=== PATIENT | male | born 1965 | race Caucasian/White ===

== ENCOUNTER 2016-11-11 20:08 | Inpatient (IN) | payer BC ==
[~2016-11-11] VITALS: Ht 185.4 cm; Wt 126.6 kg
[2016-11-11] MEDS ORDERED: CATAPRES0.1 MG ORAL (20:21)
[2016-11-11] MEDS ORDERED: PREDNISONE10 MG ORAL (20:21)
[2016-11-11] MEDS ORDERED: FUROSEMIDE20 M1 ORAL (20:21)
[2016-11-11 20:25] VITALS: BP 120/48
[2016-11-11 20:44] LABS: BASOPHILS % (AUTO) 2.1 % (0.0-2.0); EOSINOPHILS % (AUTO) 1.4 % (0.0-3.0); LYMPHOCYTES % (AUTO) 32.4 % (20.0-45.0); MEAN CORPUSCULAR HEMOGLOBIN 33.7 PG (27.0-31.0); MEAN CORPUSCULAR HGB CONC 35.3 G/DL (32.0-36.0); MEAN CORPUSCULAR VOLUME 96 FL (80-99); MEAN PLATELET VOLUME 7.4 FL (6.5-10.1); MONOCYTES % (AUTO) 11.9 % (1.0-10.0); NEUTROPHILS % (AUTO) 52.2 % (45.0-75.0); PLATELET COUNT 245 K/UL (150-450); RED BLOOD COUNT 4.51 M/UL (4.70-6.10); RED CELL DISTRIBUTION WIDTH 13.6 % (11.6-14.8); WHITE BLOOD COUNT 8.3 K/UL (4.8-10.8)
[2016-11-11 21:11] LABS: ALANINE AMINOTRANSFERASE 25 U/L (3-41); ALBUMIN/GLOBULIN RATIO 1.1 (1.0-2.7); ANION GAP 16 (5-15); ASPARTATE AMINO TRANSFERASE 17 U/L (5-40); CALCIUM 9.5 mg/dL (8.6-10.2); CARBON DIOXIDE 24 mEQ/L (20-30); CHLORIDE 97 mEQ/L (98-107); GLOMERULAR FILTRATION RATE > 60 mL/min (>60); HEMOLYSIS 18; POTASSIUM 4.3 mEQ/L (3.4-4.9); SODIUM 137 mEQ/L (135-145); TOTAL PROTEIN 7.6 g/dL (6.6-8.7); TROPONIN I < 0.30 ng/mL (<=0.30)
[2016-11-11 21:22] LABS: CKMB < 1.5 ng/mL (< 6.7)
--- NOTE | 2016-11-11 21:41 | Emergency Room Report ---
History of Present Illness General Chief Complaint: Chest Pain Source: Patient (JOAN NOVA M.D.) Present Illness HPI 51-year-old male presents ED complaining of chest pain. States chest pain started just prior to arrival. Patient was at a tattoo parlour getting a tattoo when the chest pain started while at rest. Pain was midsternal, sharp, 7 -10. Nonradiating. Denies shortness of breath. Denies any dizziness. Patient was given nitroglycerin by EMS and states the chest pain improved. Given aspirin. Patient has history of high blood pressure and angina. Patient has taken nitroglycerin in the past. Denies drug use. No other aggravating relieving factors. Denies any other associated symptoms (JOAN NOVA M.D.) HPI The patient is a 51-year-old male who presented after increased chest pain which began just prior to arrival. Patient had been having sharp central chest pain which was improved with nitroglycerin. The patient had prior history of similar type symptoms and had previous diagnosis of arterial vasospasm. The patient had the been taking bystolic for blood pressure. The patient not been any vomiting. He had prior history of sleep apnea. He had negative cardiac catheterization approximately 10-12 years ago. He denies leg pain or swelling. (Dwight Amaya) Allergies: Coded Allergies: No Known Allergies (Unverified , 11/11/16) Patient History Past Medical History: HTN, other - angina Past Surgical History: none Pertinent Family History: none Social History: Denies: alcohol use, drug use, smoking Immunizations: UTD Reviewed Nursing Documentation: PMH: Agreed, PSxH: Agreed (JOAN NOVA M.D.) Past Medical History: see triage record Reviewed Nursing Documentation: PMH: Agreed, PSxH: Agreed (Dwight Amaya) Nursing Documentation-PMH Past Medical History: No History, Except For Hx Cardiac Problems: Yes - arrythmias, autoimmune disease Hx Hypertension: Yes (JOAN NOVA M.D.) Review of Systems All Other Systems: negative except mentioned in HPI (JOAN NOVA M.D.) All Other Systems: negative except mentioned in HPI (Dwight Amaya) Physical Exam Vital Signs Date Time Temp Pulse Resp B/P Pulse Ox O2 Delivery O2 Flow Rate FiO2 11/11/16 20:01 80 18 120/48 98 Room Air 11/11/16 20:25 98.2 Sp02 EP Interpretation: reviewed, normal General Appearance: no apparent distress, alert, GCS 15, non-toxic, obese Head: normocephalic, atraumatic Eyes: bilateral eye PERRL, bilateral eye normal inspection ENT: hearing grossly normal, normal pharynx, no angioedema, normal voice Neck: full range of motion, supple/symm/no masses Respiratory: chest non-tender, lungs clear, normal breath sounds, speaking full sentences Cardiovascular #1: regular rate, rhythm, no edema Cardiovascular #2: 2+ carotid (R), 2+ carotid (L), 2+ radial (R), 2+ radial (L) , 2+ dorsalis pedis (R), 2+ dorsalis pedis (L) Gastrointestinal: normal bowel sounds, non tender, soft, non-distended, no guarding, no rebound Rectal: deferred Genitourinary: normal inspection, no CVA tenderness Musculoskeletal: back normal, gait/station normal, normal range of motion, non- tender Neurologic: alert, oriented x3, responsive, motor strength/tone normal, sensory intact, speech normal Psychiatric: judgement/insight normal, memory normal, mood/affect normal, no suicidal/homicidal ideation Reflexes: 3+ bicep (R), 3+ bicep (L), 3+ tricep (R), 3+ tricep (L), 3+ knee (R) , 3+ knee (L) Skin: normal color, no rash, warm/dry, well hydrated Lymphatic: no adenopathy (JOAN NOVA M.D.) Sp02 EP Interpretation: reviewed, normal General Appearance: normal inspection, well appearing, no apparent distress, alert, obese Head: atraumatic ENT: normal ENT inspection, hearing grossly normal, normal voice Neck: normal inspection, full range of motion, supple, no bony tend Respiratory: normal inspection, lungs clear, normal breath sounds, no respiratory distress, no retraction, no wheezing Cardiovascular #1: regular rate, rhythm, no edema Gastrointestinal: normal inspection, normal bowel sounds, non tender, soft, no guarding, no hernia Genitourinary: no CVA tenderness Musculoskeletal: normal inspection, back normal, normal range of motion Neurologic: normal inspection, alert, oriented x3, responsive, materials engineer III-XII nml as tested, speech normal Psychiatric: normal inspection, judgement/insight normal, mood/affect normal Skin: normal inspection, normal color, no rash (Dwight Amaya) Medical Decision Making Diagnostic Impression: Primary Impression: ACS (acute coronary syndrome) Labs Test 11/11/16 20:20 White Blood Count 8.3 K/UL (4.8-10.8) Red Blood Count 4.51 M/UL (4.70-6.10) Hemoglobin 15.2 G/DL (14.2-18.0) Hematocrit 43.1 % (42.0-52.0) Mean Corpuscular Volume 96 FL (80-99) Mean Corpuscular Hemoglobin 33.7 PG (27.0-31.0) Mean Corpuscular Hemoglobin Concent 35.3 G/DL (32.0-36.0) Red Cell Distribution Width 13.6 % (11.6-14.8) Platelet Count 245 K/UL (150-450) Mean Platelet Volume 7.4 FL (6.5-10.1) Neutrophils (%) (Auto) 52.2 % (45.0-75.0) Lymphocytes (%) (Auto) 32.4 % (20.0-45.0) Monocytes (%) (Auto) 11.9 % (1.0-10.0) Eosinophils (%) (Auto) 1.4 % (0.0-3.0) Basophils (%) (Auto) 2.1 % (0.0-2.0) Sodium Level 137 mEQ/L (135-145) Potassium Level 4.3 mEQ/L (3.4-4.9) Chloride Level 97 mEQ/L (98-107) Carbon Dioxide Level 24 mEQ/L (20-30) Anion Gap 16 (5-15) Blood Urea Nitrogen 15 mg/dL (7-23) Creatinine 1.0 mg/dL (0.7-1.2) Estimat Glomerular Filtration Rate > 60 mL/min (>60) Glucose Level 113 mg/dL (74-106) Calcium Level 9.5 mg/dL (8.6-10.2) Total Bilirubin 0.3 mg/dL (0.0-1.2) Aspartate Amino Transf (AST/SGOT) 17 U/L (5-40) Alanine Aminotransferase (ALT/SGPT) 25 U/L (3-41) Alkaline Phosphatase 60 U/L (40-129) Total Creatine Kinase 55 U/L (38-174) Creatine Kinase MB < 1.5 ng/mL (< 6.7) Creatine Kinase MB Relative Index Troponin I < 0.30 ng/mL (<=0.30) Pro-B-Type Natriuretic Peptide 29 pg/mL (0-125) Total Protein 7.6 g/dL (6.6-8.7) Albumin 4.0 g/dL (3.5-5.2) Globulin 3.6 g/dL Albumin/Globulin Ratio 1.1 (1.0-2.7) (JOAN NOVA M.D.) ER Course Patient presented for chest pain. Differential diagnosis included but was not limited to acute coronary syndrome, pulmonary embolism, pneumonia, aortic dissection, shingles, pneumothorax, aortic dissection, esophageal rupture, pericarditis. Because of complexity of patient's case laboratory testing and imaging studies were ordered. EKG interpreted by me showed normal sinus rhythm without acute ST or T wave changes. The patient noted have low-voltage consistent with patient's obesity. A chest x-ray one view interpreted by me showed cardiomegaly without evident infiltrate or effusion. Dr. Figueroa was contacted for Dr. Kurtz for inpatient management due to the patient's symptoms as well as chest pain. Labs Test 11/11/16 20:20 11/12/16 04:15 Anion Gap 16 (5-15) Total Bilirubin 0.3 mg/dL (0.0-1.2) Aspartate Amino Transf (AST/SGOT) 17 U/L (5-40) Alanine Aminotransferase (ALT/SGPT) 25 U/L (3-41) Alkaline Phosphatase 60 U/L (40-129) Total Creatine Kinase 55 U/L (38-174) Creatine Kinase MB < 1.5 ng/mL (< 6.7) Creatine Kinase MB Relative Index Pro-B-Type Natriuretic Peptide 29 pg/mL (0-125) Total Protein 7.6 g/dL (6.6-8.7) Albumin 4.0 g/dL (3.5-5.2) Globulin 3.6 g/dL Albumin/Globulin Ratio 1.1 (1.0-2.7) White Blood Count 7.7 K/UL (4.8-10.8) Red Blood Count 4.63 M/UL (4.70-6.10) Hemoglobin 14.7 G/DL (14.2-18.0) Hematocrit 42.8 % (42.0-52.0) Mean Corpuscular Volume 92 FL (80-99) Mean Corpuscular Hemoglobin 31.9 PG (27.0-31.0) Mean Corpuscular Hemoglobin Concent 34.4 G/DL (32.0-36.0) Red Cell Distribution Width 13.1 % (11.6-14.8) Platelet Count 255 K/UL (150-450) Mean Platelet Volume 7.8 FL (6.5-10.1) Neutrophils (%) (Auto) 55.4 % (45.0-75.0) Lymphocytes (%) (Auto) 31.3 % (20.0-45.0) Monocytes (%) (Auto) 10.1 % (1.0-10.0) Eosinophils (%) (Auto) 1.9 % (0.0-3.0) Basophils (%) (Auto) 1.4 % (0.0-2.0) (Dwight Amaya) EKG Diagnostic Results Rate: normal Rhythm: NSR ST Segments: no acute changes ASA given to the pt in ED: No - given by ems (JOAN NOVA M.D.) Rate: normal Rhythm: NSR ST Segments: no acute changes (Dwight Amaya) Rhythm Strip Diag. Results EP Interpretation: yes Rhythm: NSR, no PVC's, no ectopy (JOAN NOVA M.D.) Chest X-Ray Diagnostic Results EP Interpretation: Yes Findings: no consolidation, no effusion, no pneumothorax, no acute cardiopulmonary disease, other - cardiomegaly Number of Views: 1 (JOAN NOVA M.D.) Last Vital Signs Date Time Temp Pulse Resp B/P Pulse Ox O2 Delivery O2 Flow Rate FiO2 11/11/16 20:25 98.2 88 18 120/48 98 Room Air Status: improved (JOAN NOVA M.D.) Status: improved (Dwight Amaya) Disposition: ADMITTED INPATIENT Condition: Serious Referrals: NOT CHOSEN IPA/,REFERRING (PCP) JOAN NOVA M.D. November 11, 2016 21:41 Dwight Amaya November 12, 2016 04:44
[2016-11-11] MEDS ORDERED: Nitroglycerin 2% oint pkt TOPIC ONE (21:45)
[2016-11-11 22:47] VITALS: BP 121/57
[2016-11-11] MEDS ORDERED: Miralax 17gm pkt ORAL PRN (23:00)
[2016-11-11] MEDS ORDERED: Nitroglycerin Subl 0.4mg tab (Bottle Of 25) SL PRN (23:00)
[2016-11-12 00:08] VITALS: BP 145/91
[2016-11-12 04:00] VITALS: BP 129/66
[2016-11-12 04:35] LABS: BASOPHILS % (AUTO) 1.4 % (0.0-2.0); EOSINOPHILS % (AUTO) 1.9 % (0.0-3.0); LYMPHOCYTES % (AUTO) 31.3 % (20.0-45.0); MEAN CORPUSCULAR HEMOGLOBIN 31.9 PG (27.0-31.0); MEAN CORPUSCULAR HGB CONC 34.4 G/DL (32.0-36.0); MEAN CORPUSCULAR VOLUME 92 FL (80-99); MEAN PLATELET VOLUME 7.8 FL (6.5-10.1); MONOCYTES % (AUTO) 10.1 % (1.0-10.0); NEUTROPHILS % (AUTO) 55.4 % (45.0-75.0); PLATELET COUNT 255 K/UL (150-450); RED BLOOD COUNT 4.63 M/UL (4.70-6.10); RED CELL DISTRIBUTION WIDTH 13.1 % (11.6-14.8); WHITE BLOOD COUNT 7.7 K/UL (4.8-10.8)
[2016-11-12 05:34] LABS: TROPONIN I < 0.30 ng/mL (<=0.30)
[2016-11-12 05:36] LABS: ANION GAP 14 (5-15); CARBON DIOXIDE 26 mEQ/L (20-30); CHLORIDE 100 mEQ/L (98-107); CHOLESTEROL 158 mg/dL (< 200); CHOLESTEROL/HDL RATIO 3.9 (3.3-4.4); CREATININE 0.9 mg/dL (0.7-1.2); GLOMERULAR FILTRATION RATE > 60 mL/min (>60); HEMOLYSIS 22; LDL CHOLESTEROL (CALC.) 78 mg/dL (60-99); POTASSIUM 3.9 mEQ/L (3.4-4.9); SODIUM 140 mEQ/L (135-145)
[2016-11-12 07:04] LABS: HEMOGLOBIN A1C 5.9 % (< 6.0)
[2016-11-12] MEDS ORDERED: Heparin 5000 units/ml inj SUBQ SCH (09:00)
[2016-11-12] MEDS ORDERED: Docusate 100mg tablet ORAL SCH (09:00)
[2016-11-12] MEDS ORDERED: Aspirin Baby 81mg ORAL SCH (09:00)
--- NOTE | 2016-11-12 12:39 | Diagnostic Imaging Report ---
Indications: Chest pain Technique: Portable AP chest Findings: Comparison: None Image is expiratory in nature, limiting evaluation. Cardiac silhouette obscured. Ulnar vasculature congestion. Linear densities left lung base. Visualized portions of right lung, bilateral pleural surfaces otherwise clear. IMPRESSION: Apparent pulmonary vascular congestion likely technical in nature. An element of congestive heart failure not excludable. Upright PA and lateral chest radiographs with better inspiratory effort and optimal technique recommended for more complete evaluation.. subsegmental atelectasis left lung base
--- NOTE | 2016-11-12 15:58 | Cardiology Report ---
APPROVED REPORT EKG Measurement Heart [id number] Normal sinus rhythm Normal ECG
--- NOTE | 2016-11-13 11:02 | Discharge Summary ---
Discharge Summary Hospital Course Date of Admission November 11, 2016 at 21:00 Date of Discharge November 12, 2016 at 06:50 Admitting Diagnosis ACUTE CORONARY SYNDROME HPI Allen Patel is a 51 year old male who was admitted on November 11, 2016 at 21:00 for Acute Coronary Syndrome Hospital Course [id number] Discharge Discharge Disposition Patient eloped Discharge Diagnoses: Bella Ferguson NP November 13, 2016 11:02
--- NOTE | 2016-11-13 14:41 | History and Physical ---
History of Present Illness General Date patient seen: November 12, 2016 Time patient seen: 01:00 Reason for Hospitalization: Chest Pain Present Illness HPI 51-year-old male presents ED complaining of chest pain. States chest pain started just prior to arrival. Patient was at a tattoo parlour getting a tattoo when the chest pain started while at rest. Pain was midsternal, sharp, 7 -10. Nonradiating. Denies shortness of breath. Denies any dizziness. Patient was given nitroglycerin by EMS and states the chest pain improved. Given aspirin. Patient has history of high blood pressure and angina. Patient has taken nitroglycerin in the past. Denies drug use. No other aggravating relieving factors. Denies any other associated symptoms In ED, initial trop/EKG negative. Given risk factors, pt was admitted to tele. Allergies: Coded Allergies: No Known Allergies (Unverified , 11/11/16) Medication History Scheduled Clonidine Hcl* (Catapres*), 0.1 MG ORAL EVERY 8 HOURS, (Reported) Furosemide* (Lasix*), 20 MG ORAL PRN, (Reported) Prednisone* (Prednisone*), 10 MG ORAL DAILY, (Reported) Patient History History Provided By: Patient Healthcare decision maker Resuscitation status Full Code Advanced Directive on File Past Medical/Surgical History Past Medical/Surgical History: (1) HTN (hypertension) (2) Obesity Family History Family History: Patient reports no known family medical history. Social History Social History: (1) No significant social history Review of Systems ROS Narrative CONSTITUTIONAL: No weight loss, fever, chills, weakness or fatigue. HEENT: Eyes: No visual loss, blurred vision, double vision or yellow sclerae. Ears, Nose, Throat: No hearing loss, sneezing, congestion, runny nose or sore throat. SKIN: No rash or itching. CARDIOVASCULAR: +chest pain, chest pressure or chest discomfort. No palpitations or edema. RESPIRATORY: No shortness of breath, cough or sputum. GASTROINTESTINAL: No anorexia, nausea, vomiting or diarrhea. No abdominal pain or blood. NEUROLOGICAL: No headache, dizziness, syncope, paralysis, ataxia, numbness or tingling in the extremities. No change in bowel or bladder control. MUSCULOSKELETAL: No muscle, back pain, joint pain or stiffness. HEMATOLOGIC: No anemia, bleeding or bruising. LYMPHATICS: No enlarged nodes. No history of splenectomy. PSYCHIATRIC: No history of depression or anxiety. ENDOCRINOLOGIC: No reports of sweating, cold or heat intolerance. No polyuria or polydipsia. ALLERGIES: No history of asthma, hives, eczema or rhinitis. Physical Exam Physical Exam Narrative General: alert, cooperative, no distress, appears stated age Head: normocephalic, without obvious abnormality, atraumatic Eyes: conjunctivae/corneas clear. PERRL, EOM's intact Throat: lips, mucosa, and tongue normal. MMM Neck: supple, symmetrical, trachea midline, and no JVD Lungs: clear to auscultation bilaterally Heart: regular rate and rhythm, S1, S2 normal, no murmur, click, rub or gallop Abdomen: soft, non-tender, non-distended, bowel sounds normal; no masses or organomegaly Extremities: extremities normal, atraumatic, no cyanosis or edema Pulses: 2+ and symmetric Skin: skin color, texture, turgor normal; no rashes or lesions Neurologic: grossly normal, no focal deficits Height (Feet): 6 Height (Inches): 1.00 Weight (Pounds): 279 Assessment/Plan Problem List: (1) Chest pain ICD Codes: R07.9 - Chest pain, unspecified SNOMED: 36431948 (2) HTN (hypertension) ICD Codes: I10 - Essential (primary) hypertension SNOMED: 36512252 (3) Obesity ICD Codes: E66.9 - Obesity, unspecified SNOMED: 703270939 Status: stable Assessment/Plan Admit to tele Trend trop/EKG Check TTE Cardiology consult Cont ASA, statin NTG SL PRN Consider inpt vs outpt stress test Check lipid panel, A1C, TSH Cont home meds Addictions Therapist on weight loss FULL CODE Stormy Gorman M.D. November 13, 2016 14:41
--- NOTE | 2016-11-14 06:48 | Discharge Summary 2 SIG ---
DATE OF ADMISSION: 11/11/2016 DATE OF DISCHARGE: 11/12/2016 BRIEF HOSPITAL COURSE: The patient is a 51-year-old male, who presented to ED complaining of chest pain that started prior to arrival when the patient pain started while he was at rest located midsternally described to be sharp, nonradiating and 7/10. He has a history of high blood pressure and angina and has been taking Bystolic for blood pressure. On arrival to ED, troponin was negative. EKG showed normal sinus rhythm. Chest x-ray showed no acute cardiopulmonary disease. Due to patient's risk factor, the patient was admitted to telemetry. However, full treatment was not carried out as the patient eloped from the hospital. FINAL DIAGNOSES: 1. Chest pain. 2. Hypertension. Stormy Gorman M.D. I have been assigned to dictate discharge summary on this account and I was not involved in the patient's management. Bella Ferguson N.P. DR: DEENA JOB#: [id number] CC:
== END 2016-11-12 06:50 | disposition left against medical advice (07) | DRG 313 ==
LOC: EDBD 20:08 → EMR 20:40 → 2E 21:00 → EDBEDREQ 21:52
DX: R07.9 Chest pain, unspecified (principal); I10 Essential (primary) hypertension; E66.9 Obesity, unspecified
CPT/HCPCS: 36415; 71010; 80048; 80053; 80061; 82550; 82553; 83036; 83880; 84443; 84484; 85025; 93005